=== PATIENT | female | born 1960 | race Caucasian/White ===

== ENCOUNTER 2016-06-28 09:08 | Emergency (ER) | payer OTHER, BC ==
[~2016-06-28 09:08] MED LIST: ATI2I PO; ATIVAN1 MG PO; BONIVA150 M1 PO; COZ50 PO; COZAAR50 MG PO; CRESTOR PO; CYCLOBENZAPRINE10 MG PO; CYCLOSPORINE25 M1 PO; ELA10 PO; GABAPENTIN100 M2 PO; IBANDRONATE SO150 MG PO; L40 PO; LOSARTAN POTAS100 MG PO; LOSARTAN POTASS50 M1 PO; METOCLOPRAMIDE10 PO; PANTOPRAZOLE40 MG PO; PRE1 PO; PROMETHAZINE HY25 M1 PO; PROTONIX40 MG PO; PROZ10 PO; RAPAMUNE2 MG PO; REG10I PO; REGLAN10 MG PO; RESTASIS0.051 PO; SAN100 PO; SAN25 PO; SIROLIMUS2 MG PO; ZOF4 PO; ZOFRAN ODT8 MG PO; [UNRECOGNIZED DRUG - OTHER] PO
[2016-06-28 09:52] LABS: PLATELET COUNT 162 x10^3mcL (130-400)
[2016-06-28 09:54] LABS: BASOPHIL % 0 % (0-2); RED CELL DISTRIBUTION WIDTH 16.3 % (11.5-14.5)
[2016-06-28 10:05] LABS: ALBUMIN 3.6 g/dL (3.4-5.0); BILIRUBIN TOTAL 0.6 mg/dL (0.20-1.00); CALCIUM 9.2 mg/dL (8.5-10.1); CARBON DIOXIDE 23.4 mmol/L (21-32); CREATININE SERUM 2.3 mg/dL (0.6-1.0); POTASSIUM SERUM 3.5 mmol/L (3.5-5.1)
[2016-06-28 10:07] LABS: CHOLESTEROL/HDL RATIO 1.5
[2016-06-28 10:23] VITALS: BP 164/92
[2016-06-28 10:35] LABS: T3 TOTAL 0.78 ng/mL
[2016-06-28 10:38] LABS: FREE THYROXINE INDEX 3.4 ug/dL (1.4-4.5); T4(THYROXINE) 9.6 ug/dL (4.7-13.3)
[2016-06-28 10:44] LABS: FREE T4 1.1 ng/dL (0.76-1.46)
== END 2016-06-28 10:38 | disposition short-term general hospital (02) ==
LOC: ED 09:08
PROVIDERS: Specialist
DX: R19.7 Diarrhea, unspecified (principal); R11.10 Vomiting, unspecified; E78.00 Pure hypercholesterolemia, unspecified; K21.9 Gastro-esophageal reflux disease without esophagitis; Z90.49 Acquired absence of other specified parts of digestive tract; Z94.0 Kidney transplant status; Z94.83 Pancreas transplant status
CPT/HCPCS: 82962; 83880; 84439; J2405; J7030; Q0092

== ENCOUNTER → 2017-03-06 | Outpatient (CLI) | payer OTHER, BC | END | disposition home or self-care (01) | LOC: US 02-27 10:30 | PROC: [UNRECOGNIZED PROCEDURE] (principal; 2017-03-06) | DX: T86.11 Kidney transplant rejection (principal) ==

== ENCOUNTER 2018-09-19 00:26 | Emergency (ER) | payer OTHER, BC ==
[~2018-09-19] VITALS: Ht 167.6 cm; Wt 49.9 kg
[2018-09-19 00:34] VITALS: Ht 167.6 cm; Wt 49.9 kg
[2018-09-19 02:26] LABS: BASOPHIL % 0.5 % (0-2); PLATELET COUNT 218 x10^3mcL (130-400)
[2018-09-19 02:32] LABS: RED CELL DISTRIBUTION WIDTH 16.5 % (11.5-14.5)
[2018-09-19 02:37] LABS: CALCIUM 8.5 mg/dL (8.5-10.1); CARBON DIOXIDE 27.8 mmol/L (21-32); CREATININE SERUM 1.9 mg/dL (0.6-1.0); POTASSIUM SERUM 3.4 mmol/L (3.5-5.1)
[2018-09-19 04:49] VITALS: BP 138/93
== END 2018-09-19 04:49 | disposition home or self-care (01) ==
LOC: ED 00:26
PROVIDERS: Emergency Medicine
DX: R22.42 Localized swelling, mass and lump, left lower limb (principal); I10 Essential (primary) hypertension; E11.9 Type 2 diabetes mellitus without complications; E78.00 Pure hypercholesterolemia, unspecified; F41.9 Anxiety disorder, unspecified; K21.9 Gastro-esophageal reflux disease without esophagitis; Z88.0 Allergy status to penicillin; Z88.8 Allergy status to other drugs, medicaments and biological substances; Z99.2 Dependence on renal dialysis
CPT/HCPCS: 36415; Q0092

== ENCOUNTER → 2018-10-12 | Outpatient (CLI) | payer OTHER, BC | END | disposition home or self-care (01) | LOC: US 10-05 14:00 | PROC: B44HZZZ Ultrasonography of Bilateral Lower Extremity Arteries (ICD-10-PCS; principal; 2018-10-12) | DX: M79.89 Other specified soft tissue disorders (principal) ==

== ENCOUNTER 2019-01-04 12:03 | Emergency (ER) | payer OTHER, BC ==
[~2019-01-04] VITALS: Ht 165.1 cm; Wt 49.9 kg
[2019-01-04 12:10] VITALS: BP 130/73; Ht 165.1 cm; Wt 49.9 kg
== END 2019-01-04 12:51 | disposition home or self-care (01) ==
LOC: ED 12:03
DX: R60.0 Localized edema (principal); I10 Essential (primary) hypertension; E11.9 Type 2 diabetes mellitus without complications; E78.00 Pure hypercholesterolemia, unspecified; F41.9 Anxiety disorder, unspecified; K21.9 Gastro-esophageal reflux disease without esophagitis; Z90.49 Acquired absence of other specified parts of digestive tract; Z88.0 Allergy status to penicillin; Z88.8 Allergy status to other drugs, medicaments and biological substances

== ENCOUNTER → 2019-07-05 | Outpatient (CLI) | payer OTHER, BC | END | disposition home or self-care (01) | LOC: US 09:14 | PROC: B345ZZZ Ultrasonography of Bilateral Common Carotid Arteries (ICD-10-PCS; principal; 2019-07-05) | DX: E11.22 Type 2 diabetes mellitus with diabetic chronic kidney disease (principal); R41.82 Altered mental status, unspecified ==

== ENCOUNTER → 2019-11-26 | Outpatient (CLI) | payer OTHER, BC | END | disposition home or self-care (01) | LOC: US 08:57 | PROC: B54DZZZ Ultrasonography of Bilateral Lower Extremity Veins (ICD-10-PCS; principal; 2019-11-26) | DX: R60.0 Localized edema (principal); M79.604 Pain in right leg ==